=== PATIENT | male | born 1960 | race Two or more races ===

== ENCOUNTER 2023-07-17 20:40 | Inpatient (IN) | payer MEDICARE, OTHER ==
[2023-07-17 21:51] VITALS: BMI 21.9
[2023-07-17] MEDS ORDERED: MAGNESIUM HYDROX 2400MG/30ML ORAL SUSPENSION 30 ML CUP PO PRN (23:25)
[2023-07-17] MEDS ORDERED: NALOXONE HCL 0.4 MG/ML VIAL IM PRN (23:25)
[2023-07-17] MEDS ORDERED: NALOXONE HCL (KLOXXADO) 8 MG SPRAY NS PRN (23:25)
[2023-07-17] MEDS ORDERED: IBUPROFEN 400 MG TABLET (FP) PO PRN (23:25)
[2023-07-17] MEDS ORDERED: LOPERAMIDE HCL 2 MG CAPSULE PO PRN (23:25)
[2023-07-17] MEDS ORDERED: BENZOCAINE/MENTHOL (CHLORASEPTIC ) LOZENGE MM PRN (23:25)
[2023-07-17] MEDS ORDERED: ACETAMINOPHEN 325 MG TABLET (FP) PO PRN (23:25)
[2023-07-17] MEDS ORDERED: guaiFENesin 600 MG TABLET.ER (FP) PO PRN (23:25)
[2023-07-17] MEDS ORDERED: POLYETHYLENE GLYCOL (HEALTHYLAX) 3350 17 GM PACKET PO PRN (23:25)
[2023-07-17] MEDS ORDERED: ONDANSETRON *ODT* 4 MG TABLET SL PRN (23:25)
[2023-07-17] MEDS ORDERED: MAG HYDROX/AL HYDROX/SIMETH 30 ML UNIT-DOSE CUP PO PRN (23:25)
[2023-07-17] MEDS ORDERED: IBUPROFEN 600 MG TABLET (FP) PO PRN (23:25)
[2023-07-17] MEDS ORDERED: NICOTINE POLACRILEX 4 MG GUM BUC PRN (23:25)
[2023-07-17] MEDS ORDERED: DICYCLOMINE HCL 10 MG CAPSULE PO PRN (23:25)
[2023-07-17] MEDS ORDERED: BENZONATATE 200 MG CAPSULE PO PRN (23:25)
[2023-07-17] MEDS ORDERED: BISMUTH SUBSALICYLATE 524 MG/30 ML PO PRN (23:25)
[2023-07-18] MEDS: PRENATAL VITAMINS W/ FOLIC ACID TABLET (FP) PO SCH (10:14)
[2023-07-18] MEDS: NICOTINE 14 MG/24 HOURS TOPICAL PATCH TD SCH (10:15)
[2023-07-18 10:31] LABS: HEMATOCRIT 34.3 % (35.4-49); HEMOGLOBIN 11.5 GM/dL (11.7-16.9); MCH 31.5 pg (25.7-33.7); MCHC 33.6 g/dl (32.0-35.9); MEAN CELL VOLUME 93.5 fl (80-96); MEAN PLT VOLUME 7.3 fl (7.5-11.1); PLATELET COUNT 266 10^3/uL (134-434); RBC 3.67 M/mm3 (4.00-5.60); RDW 13.4 % (11.9-15.9); WHITE BLOOD COUNT 4.4 K/mm3 (4.0-10.0)
[2023-07-18] MEDS ORDERED: methaDONE HCL 10 MG TABLET (FOR DETOX USE ONLY) PO ONE (10:32)
[2023-07-18 12:20] LABS: POTASSIUM 3.8 mmol/L (3.5-5.1)
[2023-07-18 12:28] LABS: CALCIUM 8.8 mg/dL (8.5-10.1)
[2023-07-18 12:29] LABS: ALBUMIN 3.7 g/dl (3.4-5.0); BLOOD UREA NITROGEN 14.1 mg/dL (7-18)
[2023-07-18 12:32] LABS: CREATININE 0.8 mg/dL (0.55-1.3)
[2023-07-18 12:34] LABS: TOT PROT 6.8 g/dl (6.4-8.2)
[2023-07-18] MEDS: OXcarbazepine 300 MG TABLET (UD) PO SCH ×2 (15:58→22:31)
[2023-07-18] MEDS: MELATONIN 5 MG TABLETS PO SCH (22:30)
[2023-07-18] MEDS: THIAMINE HCL 100 MG TABLET (FP) PO SCH (22:31)
[2023-07-19] MEDS: hydrOXYzine PAMOATE 25 MG CAPSULE (FP) PO PRN ×2 (05:38→20:30)
[2023-07-19] MEDS: cloNIDine HCL 0.1 MG TABLET PO PRN ×3 (05:38→21:53)
[2023-07-19] MEDS: PRENATAL VITAMINS W/ FOLIC ACID TABLET (FP) PO SCH (09:53)
[2023-07-19] MEDS: OXcarbazepine 300 MG TABLET (UD) PO SCH ×2 (09:53→21:13)
[2023-07-19] MEDS: NICOTINE 14 MG/24 HOURS TOPICAL PATCH TD SCH (09:54)
[2023-07-19] MEDS ORDERED: diazePAM 5 MG TABLET PO PRN ×3 (14:52→22:10)
[2023-07-19 16:48] VITALS: RESP 16
[2023-07-19] MEDS ORDERED: P-EPHED 60MG/TRIPROLIDI 2.5MG TABLET PO PRN (18:58)
[2023-07-19 20:38] LABS: URINE APPEARANCE CLEAR; URINE BILIRUBIN NEGATIVE (NEGATIVE); URINE COLOR YELLOW; URINE GLUCOSE (UA) NEGATIVE (NEGATIVE); URINE KETONE NEGATIVE (NEGATIVE); URINE LEUK ESTERASE NEGATIVE (NEGATIVE); URINE NITRITE NEGATIVE (NEGATIVE); URINE PROTEIN NEGATIVE (NEGATIVE)
[2023-07-19] MEDS: THIAMINE HCL 100 MG TABLET (FP) PO SCH (21:13)
[2023-07-19] MEDS: MELATONIN 5 MG TABLETS PO SCH (21:15)
[2023-07-19] MEDS ORDERED: METHOCARBAMOL 500 MG TABLET PO ONE (22:10)
[2023-07-19] MEDS ORDERED: methaDONE HCL 10 MG TABLET PO ONE (22:12)
[2023-07-19 23:19] VITALS: BP 109/66; PULSE 67; TEMP 98
[2023-07-20] MEDS ORDERED: methaDONE HCL 10 MG TABLET (FOR DETOX USE ONLY) PO ONE (10:00)
[2023-07-22] MEDS ORDERED: methaDONE HCL 10 MG TABLET (FOR DETOX USE ONLY) PO ONE (10:00)
== END 2023-07-20 04:20 | disposition left against medical advice (07) | DRG 894 ==
LOC: YASAS 20:40 → Y3N 23:43 → UNDOADMIN 23:43 → Y3N 07-19 23:11
PROVIDERS: ADMIT Allergy & Immunology; ATTEND Surgery
PROC: HZ2ZZZZ Detoxification Services for Substance Abuse Treatment (ICD-10-PCS; principal; 2023-07-17)
DX: F11.23 Opioid dependence with withdrawal (principal); F17.210 Nicotine dependence, cigarettes, uncomplicated; F19.24 Other psychoactive substance dependence with psychoactive substance-induced mood disorder; G40.909 Epilepsy, unspecified, not intractable, without status epilepticus; R09.81 Nasal congestion
CPT/HCPCS: 36415; 80053; 81003; 85027; 86780; 87635; 87811; 93005; 93010

== ENCOUNTER 2024-01-04 16:32 | Inpatient (IN) | payer OTHER ==
[2024-01-04] MEDS ORDERED: LOPERAMIDE HCL 2 MG CAPSULE PO PRN (19:35)
[2024-01-04] MEDS ORDERED: NALOXONE HCL (KLOXXADO) 8 MG SPRAY NS PRN (19:35)
[2024-01-04] MEDS ORDERED: IBUPROFEN 600 MG TABLET (FP) PO PRN (19:35)
[2024-01-04] MEDS ORDERED: POLYETHYLENE GLYCOL (HEALTHYLAX) 3350 17 GM PACKET PO PRN (19:35)
[2024-01-04] MEDS ORDERED: BISMUTH SUBSALICYLATE 524 MG/30 ML PO PRN (19:35)
[2024-01-04] MEDS ORDERED: IBUPROFEN 400 MG TABLET (FP) PO PRN (19:35)
[2024-01-04] MEDS ORDERED: ACETAMINOPHEN 325 MG TABLET (FP) PO PRN (19:35)
[2024-01-04] MEDS ORDERED: guaiFENesin 600 MG TABLET.ER (FP) PO PRN (19:35)
[2024-01-04] MEDS ORDERED: BENZONATATE 200 MG CAPSULE PO PRN (19:35)
[2024-01-04] MEDS ORDERED: MAG HYDROX/AL HYDROX/SIMETH 30 ML UNIT-DOSE CUP PO PRN (19:35)
[2024-01-04] MEDS ORDERED: METHOCARBAMOL 500 MG TABLET PO PRN (19:35)
[2024-01-04] MEDS ORDERED: DICYCLOMINE HCL 10 MG CAPSULE PO PRN (19:35)
[2024-01-04] MEDS ORDERED: BENZOCAINE/MENTHOL (CHLORASEPTIC ) LOZENGE MM PRN (19:35)
[2024-01-04] MEDS ORDERED: NALOXONE HCL 0.4 MG/ML VIAL IM PRN (19:35)
[2024-01-04] MEDS ORDERED: MAGNESIUM HYDROX 2400MG/30ML ORAL SUSPENSION 30 ML CUP PO PRN (19:35)
[2024-01-04] MEDS ORDERED: ONDANSETRON *ODT* 4 MG TABLET SL PRN (19:35)
[2024-01-04] MEDS: THIAMINE 100 MG TABLET PO SCH (22:26)
[2024-01-04] MEDS: MELATONIN 5 MG TABLETS PO SCH (22:27)
[2024-01-05] MEDS ORDERED: cloNIDine HCL 0.1 MG TABLET PO PRN (10:12)
[2024-01-05] MEDS: PRENATAL VITAMINS W/ FOLIC ACID TABLET (FP) PO SCH (10:48)
[2024-01-05 10:57] LABS: HEMATOCRIT 36.2 % (35.4-49); HEMOGLOBIN 12.1 GM/dL (11.7-16.9); MCH 31.6 pg (25.7-33.7); MCHC 33.4 g/dl (32.0-35.9); MEAN CELL VOLUME 94.6 fl (80-96); MEAN PLT VOLUME 7.9 fl (7.5-11.1); PLATELET COUNT 206 10^3/uL (134-434); RBC 3.83 M/mm3 (4.00-5.60); RDW 12.7 % (11.9-15.9); WHITE BLOOD COUNT 5.7 K/mm3 (4.0-10.0)
[2024-01-05 11:13] LABS: CHLORIDE 105 mmol/L (98-107); POTASSIUM 4.5 mmol/L (3.5-5.1); SODIUM 137 mmol/L (136-145)
[2024-01-05 11:20] LABS: CALCIUM 9.1 mg/dL (8.5-10.1)
[2024-01-05 11:21] LABS: ALBUMIN 3.9 g/dl (3.4-5.0); ANION GAP 2 mmol/L (4-13); BLOOD UREA NITROGEN 15.2 mg/dL (7-18); CO2 29 mmol/L (21-32); GLUCOSE,RANDOM 91 mg/dL (74-106)
[2024-01-05 11:24] LABS: CREATININE 0.9 mg/dL (0.55-1.3); SGOT/AST 34 U/L (15-37); SGPT/ALT 20 U/L (13-61)
[2024-01-05 11:26] LABS: BILIRUBIN,TOTAL 0.8 mg/dL (0.2-1); TOT PROT 7.4 g/dl (6.4-8.2)
[2024-01-05 11:27] LABS: ALK PHOS 62 U/L (45-117)
[2024-01-05] MEDS: levETIRAcetam XR 750 MG TAB PO SCH (11:47)
[2024-01-05 12:07] LABS: HIV INTERPRETATION NEGATIVE (NEGATIVE)
[2024-01-05 13:02] VITALS: RESP 17
[2024-01-05 17:24] VITALS: TEMP 97.3
[2024-01-05 23:39] VITALS: BP 106/59; PULSE 55
[2024-01-06] MEDS: hydrOXYzine PAMOATE 25 MG CAPSULE (FP) PO PRN (02:11)
[2024-01-06] MEDS ORDERED: methaDONE HCL 10 MG TABLET (FOR DETOX USE ONLY) PO ONE (10:00)
[2024-01-08] MEDS ORDERED: methaDONE HCL 10 MG TABLET (FOR DETOX USE ONLY) PO ONE (10:00)
== END 2024-01-06 06:20 | disposition left against medical advice (07) | DRG 894 ==
LOC: YASAS 16:32 → Y6N 19:53
PROVIDERS: ADMIT Allergy & Immunology; ATTEND Surgery
PROC: HZ2ZZZZ Detoxification Services for Substance Abuse Treatment (ICD-10-PCS; principal; 2024-01-04)
DX: F11.23 Opioid dependence with withdrawal (principal); F17.210 Nicotine dependence, cigarettes, uncomplicated; F19.24 Other psychoactive substance dependence with psychoactive substance-induced mood disorder; G40.909 Epilepsy, unspecified, not intractable, without status epilepticus; Z28.311 Partially vaccinated for COVID-19
CPT/HCPCS: 36415; 80053; 80305; 80307; 85027; 86780; 87389; 93005; 93010